=== PATIENT | male | born 1960 | race Caucasian/White ===

== ENCOUNTER → 2016-10-28 | Outpatient (CLI) | payer BC ==
[~2016-10-28] MED LIST: AMLODIPINE BESY10 MG PO; FENOFIBRIC ACI135 MG PO; KRILL OIL 3001 EACH PO; LIDODERM 5% P1 PATCH TD; LISINOPRIL40 MG PO; MICROZIDE12.5 M1 PO; NAPROSYN500 MG PO; NORCO 5/3251 TABLET PO; PREDNISONE20 MG PO; ROSUVASTATIN CA10 MG PO; SERTRALINE HCL50 MG PO; TYLENOL EXTRA500 MG PO; VALIUM2 MG PO
== END | disposition home or self-care (01) ==
LOC: CDC 15:42
DX: K40.30 Unilateral inguinal hernia, with obstruction, without gangrene, not specified as recurrent (principal)
CPT/HCPCS: 93000

== ENCOUNTER 2016-11-11 05:32 | Day surgery (SDC) | payer BC ==
[~2016-11-11] VITALS: Ht 172.7 cm; Wt 95.3 kg
[2016-11-11 05:56] VITALS: BP 134/96
[2016-11-11] MEDS ORDERED: PERCOCET 5/31 TABLET PO (09:29)
[2016-11-11 11:31] VITALS: BP 143/98
[2016-11-11 12:27] VITALS: BP 114/95
== END 2016-11-11 12:35 | disposition home or self-care (01) ==
LOC: SDC 05:32
PROC: 0YU60JZ Supplement Left Inguinal Region with Synthetic Substitute, Open Approach (ICD-10-PCS; principal; 2016-11-11)
DX: K40.30 Unilateral inguinal hernia, with obstruction, without gangrene, not specified as recurrent (principal); E78.5 Hyperlipidemia, unspecified; Z87.891 Personal history of nicotine dependence; I10 Essential (primary) hypertension; E66.9 Obesity, unspecified; Z68.31 Body mass index [BMI] 31.0-31.9, adult; Z83.3 Family history of diabetes mellitus; Z82.49 Family history of ischemic heart disease and other diseases of the circulatory system; Z83.49 Family history of other endocrine, nutritional and metabolic diseases
CPT/HCPCS: C1781; J1100; J1170; J2250; J2405; J3010